=== PATIENT | male | born 1965 | race Caucasian/White ===

== ENCOUNTER 2017-12-02 13:19 | Emergency (ER) | payer OTHER ==
[~2017-12-02] VITALS: Ht 165.1 cm; Wt 65.8 kg
[2017-12-02 13:31] VITALS: BP_SYST 127
[2017-12-02] MEDS: IBUPROFEN 600 MG TABLET PO ONE (14:37)
[2017-12-02 14:55] VITALS: BP_SYST 125
== END 2017-12-02 14:55 | disposition home or self-care (01) ==
LOC: SED 13:19
DX: M25.511 Pain in right shoulder (principal); W19.XXXA Unspecified fall, initial encounter; Y93.89 Activity, other specified; Y92.89 Other specified places as the place of occurrence of the external cause; Y99.8 Other external cause status
CPT/HCPCS: 73030; 99284